=== PATIENT | female | born 1960 | race Caucasian/White ===

== ENCOUNTER 2018-05-01 12:22 | Emergency (ER) | payer BC, OTHER ==
[2018-05-01] MEDS ORDERED: Ketorolac Tromethamine 30 MG/ML VIAL ONE (13:30)
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
== END 2018-05-01 13:55 | disposition home or self-care (01) ==
LOC: SCSER 12:22
DX: S82.831A Other fracture of upper and lower end of right fibula, initial encounter for closed fracture (principal); E03.9 Hypothyroidism, unspecified; I10 Essential (primary) hypertension; F41.9 Anxiety disorder, unspecified; F32.9 Major depressive disorder, single episode, unspecified; Z79.899 Other long term (current) drug therapy; V43.52XA Car driver injured in collision with other type car in traffic accident, initial encounter
CPT/HCPCS: 29515; 96372; J1885